=== PATIENT | male | born 1990 | race Two or more races ===

== ENCOUNTER 2020-01-01 15:20 | Emergency (ER) | payer OTHER ==
[~2020-01-01] VITALS: Ht 170.2 cm; Wt 81.6 kg
--- NOTE | 2020-01-01 15:30 | NUR ---
BIBA [id number] Was picked up by [facility] for DUI was released since he was stating SI wanting to hurt others, Hearing Voices". DENIES SI/HI ON ASSESSMENT. NO MEDICAL COMPLAINTS AT THIS TIME, NO ACUTE DISTRESS NOTED. RR EVEN AND UNLABORED ON RA. SEEN BY DR BRAVO
--- NOTE | 2020-01-01 17:16 | NUR ---
PT ASLEEP IN BED. NO COMPLAINTS AT THIS TIME. WILL CONT TO MONITOR.
--- NOTE | 2020-01-01 19:10 | NUR ---
PT SLEEPING. NO ACUTE DISTRESS NOTED. WILL CONT TO MONITOR.
--- NOTE | 2020-01-01 21:27 | NUR ---
PT AWAKE, AMBULATES WITH STEADY GAIT TO RESTROOM
--- NOTE | 2020-01-01 21:28 | NUR ---
DR AVITIA AT BEDSIDE
--- NOTE | 2020-01-01 21:38 | NUR ---
Patient discharged to home in stable condition. Written and verbal after care instructions given. Patient verbalizes understanding of instruction.
[2020-01-01 21:42] VITALS: BP 111/72
== END 2020-01-01 21:42 | disposition home or self-care (01) ==
LOC: ER 15:25
DX: F10.129 Alcohol abuse with intoxication, unspecified (principal); Z59.0 Homelessness; Y90.9 Presence of alcohol in blood, level not specified